=== PATIENT | male | born 1995 | race Caucasian/White ===

== ENCOUNTER 2017-10-27 16:52 | Emergency (ER) | payer MEDICAID, OTHER ==
[~2017-10-27] VITALS: Ht 175.3 cm; Wt 54.9 kg
[~2017-10-27 16:52] MED LIST: NO HOME MEDS
[2017-10-27 17:03] VITALS: BP 138/84
[2017-10-27] MEDS ORDERED: LIDOcaine 1.5% w/epinephrine 1:200,000 5ml ampul IJ ONE (19:05)
[2017-10-27] MEDS ORDERED: SULF1TAB49 PO (19:42)
[2017-10-27] MEDS ORDERED: mupirocin 2% ointment 22GM TP STA (19:49)
[2017-10-27] MEDS ORDERED: sulfamethoxazole/trimethoprim DS (800/160mg) tablet PO ONE (19:50)
[2017-10-27] MEDS ORDERED: MUPI22OI30 TOP (19:50)
[2017-10-27] MEDS ORDERED: mupirocin 2% nasal ointment 1gm UD NS STA (19:59)
== END 2017-10-27 20:00 | disposition home or self-care (01) ==
LOC: ER 16:53
DX: L02.01 Cutaneous abscess of face (principal); F17.200 Nicotine dependence, unspecified, uncomplicated; F15.90 Other stimulant use, unspecified, uncomplicated; Z79.2 Long term (current) use of antibiotics; Z56.0 Unemployment, unspecified
CPT/HCPCS: 10060; 99283; J3490

== ENCOUNTER 2018-05-23 08:16 | Emergency (ER) | payer MEDICAID ==
[~2018-05-23] VITALS: Ht 172.7 cm; Wt 63.1 kg
[2018-05-23 08:25] VITALS: BP 133/86
[2018-05-23 10:56] LABS: BASOPHILS % (AUTO) 0.4 % (0-1); EOSINOPHILS # (AUTO) 0.1 X10'3 (0-0.9); HEMATOCRIT 47.5 % (42.0-52.0); HEMOGLOBIN 16.5 g/dl (14.0-17.9); LYMPHOCYTES # (AUTO) 1.7 X10'3 (1.1-4.8); LYMPHOCYTES % (AUTO) 20.2 % (21-51); MEAN CORPUSCULAR HEMOGLOBIN 30.5 PG (27.0-31.0); MEAN CORPUSCULAR HGB CONC 34.7 g/dL (33.0-36.5); MEAN CORPUSCULAR VOLUME 87.9 FL (78-98); MEAN PLATELET VOLUME 8.3 FL (7.4-10.4); MONOCYTES # (AUTO) 0.9 X10'3 (0-0.9); MONOCYTES % (AUTO) 10.8 % (2-12); NEUTROPHILS # (AUTO) 5.8 X10'3 (1.8-7.7); NEUTROPHILS % (AUTO) 67.6 % (42-75); PLATELET COUNT 235 X10'3 (140-440); WHITE BLOOD COUNT 8.6 X10'3 (4.5-11.0)
[2018-05-23 11:10] LABS: ALANINE AMINOTRANSFERASE 38 U/L (12-78); ALBUMIN/GLOBULIN RATIO 1.2 (1.1-1.5); ALKALINE PHOSPHATASE 105 IU/L (46-116); ANION GAP 6 (8-16); ASPARTATE AMINO TRANSFERASE 22 U/L (10-37); BILIRUBIN,TOTAL 0.4 MG/DL (0.1-1.0); BLOOD UREA NITROGEN 16 MG/DL (7-18); BUN/CREATININE RATIO 16.7 (5.4-32.0); CALCIUM 9.2 MG/DL (8.5-10.1); CHLORIDE 103 MMOL/L (99-107); CREATININE 0.96 MG/DL (0.60-1.10); GLUCOSE 84 MG/DL (70-104); POTASSIUM 4.2 MMOL/L (3.5-5.1); SODIUM 138 MMOL/L (135-145); TOTAL CARBON DIOXIDE 28.8 MMOL/L (24-32); TOTAL PROTEIN 7.4 G/DL (6.4-8.2); eGFR > 90 ML/MIN
[2018-05-23 12:39] LABS: CLARITY,URINE CLOUDY (Clear); COLOR,URINE BROWN (Yellow); UA COLLECTION TYPE NON-SPECIFIED
[2018-05-23 12:42] LABS: RBC,URINE TNTC /HPF (0-2); SQUAMOUS EPITHELIAL CELL,UR NONE SEEN /LPF (FEW)
[2018-05-23 12:44] LABS: BACTERIA,URINE FEW /HPF (Neg)
[2018-05-23] MEDS ORDERED: azithromycin 250mg tablet PO ONE (12:50)
[2018-05-23] MEDS ORDERED: CefTRIAXone 250MG IM Kit w/LIDOcaine IM ONE (12:50)
[2018-05-23] MEDS ORDERED: CEPH250T PO (12:53)
[2018-05-23] MEDS ORDERED: FLO0.4C PO (12:53)
== END 2018-05-23 13:23 | disposition home or self-care (01) ==
LOC: ER 08:16
DX: R31.9 Hematuria, unspecified (principal); F12.90 Cannabis use, unspecified, uncomplicated; F15.90 Other stimulant use, unspecified, uncomplicated; F17.210 Nicotine dependence, cigarettes, uncomplicated; Z56.0 Unemployment, unspecified; Z79.2 Long term (current) use of antibiotics; Z79.899 Other long term (current) drug therapy
CPT/HCPCS: 36415; 80053; 81001; 85025; 87088; 87491; 87591; 96372; 99283; J0696

== ENCOUNTER 2018-09-15 21:55 | Emergency (ER) | payer MEDICAID, OTHER ==
[~2018-09-15] VITALS: Ht 175.3 cm; Wt 59.7 kg
[~2018-09-15 21:55] MED LIST changes: +CEPH250T PO
[2018-09-15] MEDS ORDERED: pantoprazole 40 MG vial IV ONE (22:10)
[2018-09-15] MEDS ORDERED: famotidine/PF 10 mg/ml inj IV ONE (22:10)
[2018-09-15] MEDS ORDERED: ondansetron/PF 4mg/2ml inj IV ONE (22:10)
[2018-09-15] MEDS ORDERED: normal saline 1000ML IV soln IVB ONE (22:10)
[2018-09-15] MEDS ORDERED: ESOMEPRAZOLE 40 MG VIAL IV ONE (22:25)
[2018-09-15] MEDS ORDERED: mag hydrox/Alum hydrox/simeth 30ml oral suspension PO ONE (22:25)
[2018-09-15] MEDS ORDERED: LIDOcaine Viscous 15ml cup MM PRN (22:25)
[2018-09-15 22:28] LABS: BASOPHILS # (AUTO) 0.1 X10'3 (0-0.2); EOSINOPHILS # (AUTO) 0.1 X10'3 (0-0.9); EOSINOPHILS % (AUTO) 1.3 % (0-6); HEMATOCRIT 41.4 % (42.0-52.0); HEMOGLOBIN 14.5 g/dl (14.0-17.9); LYMPHOCYTES # (AUTO) 1.4 X10'3 (1.1-4.8); LYMPHOCYTES % (AUTO) 16.8 % (21-51); MEAN CORPUSCULAR HEMOGLOBIN 30.1 PG (27.0-31.0); MEAN CORPUSCULAR VOLUME 86.1 FL (78-98); MEAN PLATELET VOLUME 7.7 FL (7.4-10.4); MONOCYTES # (AUTO) 1.3 X10'3 (0-0.9); MONOCYTES % (AUTO) 15.1 % (2-12); NEUTROPHILS # (AUTO) 5.7 X10'3 (1.8-7.7); NEUTROPHILS % (AUTO) 65.8 % (42-75); PLATELET COUNT 252 X10'3 (140-440); RED BLOOD COUNT 4.81 X10'6 (4.70-6.10); RED CELL DISTRIBUTION WIDTH 12.7 % (11.5-14.5); WHITE BLOOD COUNT 8.6 X10'3 (4.5-11.0)
[2018-09-15] MEDS: sucralfate 1gm/10ml UD suspension PO SCH ×2 (22:33→22:36)
[2018-09-15 22:37] LABS: ALANINE AMINOTRANSFERASE 80 U/L (12-78); ALBUMIN 3.7 G/DL (3.4-5.0); ALBUMIN/GLOBULIN RATIO 0.9 (1.1-1.5); ALKALINE PHOSPHATASE 278 IU/L (46-116); ANION GAP 11 (8-16); ASPARTATE AMINO TRANSFERASE 31 U/L (10-37); BLOOD UREA NITROGEN 13 MG/DL (7-18); BUN/CREATININE RATIO 13.3 (5.4-32.0); CALCIUM 8.9 MG/DL (8.5-10.1); CHLORIDE 100 MMOL/L (99-107); CREATININE 0.98 MG/DL (0.60-1.10); GLUCOSE 100 MG/DL (70-104); MAGNESIUM 1.8 MG/DL (1.5-2.4); POTASSIUM 3.4 MMOL/L (3.5-5.1); SODIUM 136 MMOL/L (135-145); TOTAL CARBON DIOXIDE 25.4 MMOL/L (24-32); eGFR > 90 ML/MIN
[2018-09-15 22:39] LABS: ETHANOL < 0.010 GM/DL (0.0-0.010)
--- NOTE | 2018-09-15 22:52 | NUR ---
SPOKE WITH JACKIE WITH POISON CONTROL, PER PC, RECOMMENDATIONS FOLLOWS: -PROVIDE PT WITH MILK, MAALOX, MYLANTA, OR A SIMILAR PRODUCT TO STABILIZE THE GASOLINE -NO ABNORMAL LABS TO BE EXPECTED D/T BODY NOT ABSORBING THE GASOLINE. -ABDOMINAL PAIN AND DISCOMFORT ARE EXPECTED S/SX. -PT TO BE SEEN BY PROVIDER AND D/C WHEN MD FEELS SAFE FOR DC.
[2018-09-15 23:44] LABS: TOTAL CELLS COUNTED 100
[2018-09-15 23:45] LABS: PLATELET ESTIMATE NORMAL
[2018-09-15 23:47] LABS: URINE AMPHETAMINE SCREEN POSITIVE (Neg); URINE BARBITUATE SCREEN NEGATIVE (Neg); URINE BENZODIAZEPINES SCREEN NEGATIVE (Neg); URINE CANNABINOID SCREEN POSITIVE (Neg); URINE COCAINE SCREEN NEGATIVE (Neg); URINE METHADONE SCREEN NEGATIVE (Neg); URINE OPIATE SCREEN NEGATIVE (Neg); URINE PHENCYCLIDINE SCREEN NEGATIVE (Neg)
[2018-09-16] MEDS ORDERED: OMEP20CA11 PO (00:08)
[2018-09-16] MEDS ORDERED: FAMO20TA44 PO (00:08)
[2018-09-16] MEDS ORDERED: LIDOcaine Viscous 15ml cup MM PRN (00:10)
[2018-09-16] MEDS ORDERED: mag hydrox/Alum hydrox/simeth 30ml oral suspension PO ONE (00:10)
[2018-09-16] MEDS ORDERED: sucralfate 1gm/10ml UD suspension PO SCH (00:10)
[2018-09-16 00:49] VITALS: BP 113/57
== END 2018-09-16 00:40 | disposition home or self-care (01) ==
LOC: ER 21:55
DX: T59.91XA Toxic effect of unspecified gases, fumes and vapors, accidental (unintentional), initial encounter (principal); R10.13 Epigastric pain; R11.10 Vomiting, unspecified; F15.90 Other stimulant use, unspecified, uncomplicated; F12.90 Cannabis use, unspecified, uncomplicated; Z56.0 Unemployment, unspecified; Z79.2 Long term (current) use of antibiotics; Z79.899 Other long term (current) drug therapy; Y92.89 Other specified places as the place of occurrence of the external cause
CPT/HCPCS: 36415; 71045; 80053; 80305; 80320; 83735; 84484; 85025; 93005; 96361; 96374; 96375; 99284; J2405; J3490; J7030

== ENCOUNTER 2018-09-17 21:43 | Emergency (ER) | payer MEDICAID, OTHER ==
[~2018-09-17] VITALS: Ht 177.8 cm; Wt 70.0 kg
[~2018-09-17 21:43] MED LIST changes: +FAMO20TA44 PO; +OMEP20CA11 PO
[2018-09-17 22:18] LABS: RED CELL DISTRIBUTION WIDTH 12.9 % (11.5-14.5)
[2018-09-17 22:19] LABS: BASOPHILS # (AUTO) 0.1 X10'3 (0-0.2); BASOPHILS % (AUTO) 1.1 % (0-1); EOSINOPHILS # (AUTO) 0.1 X10'3 (0-0.9); EOSINOPHILS % (AUTO) 1.7 % (0-6); HEMATOCRIT 42.3 % (42.0-52.0); HEMOGLOBIN 14.7 g/dl (14.0-17.9); LYMPHOCYTES # (AUTO) 1.1 X10'3 (1.1-4.8); LYMPHOCYTES % (AUTO) 14.4 % (21-51); MEAN CORPUSCULAR HEMOGLOBIN 30.2 PG (27.0-31.0); MEAN CORPUSCULAR HGB CONC 34.7 g/dL (33.0-36.5); MEAN PLATELET VOLUME 7.9 FL (7.4-10.4); MONOCYTES # (AUTO) 1.1 X10'3 (0-0.9); MONOCYTES % (AUTO) 13.8 % (2-12); NEUTROPHILS # (AUTO) 5.5 X10'3 (1.8-7.7); PLATELET COUNT 244 X10'3 (140-440); RED BLOOD COUNT 4.86 X10'6 (4.70-6.10); WHITE BLOOD COUNT 7.9 X10'3 (4.5-11.0)
[2018-09-17 22:30] LABS: PARTIAL THROMBOPLASTIN TIME 34 SECONDS (22-32)
[2018-09-17 22:31] LABS: ALANINE AMINOTRANSFERASE 81 U/L (12-78); ALBUMIN 3.7 G/DL (3.4-5.0); ALBUMIN/GLOBULIN RATIO 0.9 (1.1-1.5); ALKALINE PHOSPHATASE 305 IU/L (46-116); ANION GAP 10 (8-16); ASPARTATE AMINO TRANSFERASE 75 U/L (10-37); BILIRUBIN,TOTAL 0.8 MG/DL (0.1-1.0); BLOOD UREA NITROGEN 18 MG/DL (7-18); BUN/CREATININE RATIO 16.7 (5.4-32.0); CALCIUM 8.7 MG/DL (8.5-10.1); CHLORIDE 102 MMOL/L (99-107); CREATININE 1.08 MG/DL (0.60-1.10); GLUCOSE 89 MG/DL (70-104); POTASSIUM 3.3 MMOL/L (3.5-5.1); SODIUM 137 MMOL/L (135-145); TOTAL CARBON DIOXIDE 24.6 MMOL/L (24-32); eGFR 83 ML/MIN
[2018-09-17 23:27] VITALS: BP 136/76
[2018-09-17 23:28] LABS: LIPASE < 50 U/L (73-393)
--- NOTE | 2018-09-17 23:40 | NUR ---
pt unable/unwilling to provide urine or cooperate when straight catheter procedure explained. Juan Pablo and Raj, RNs assisted. Pt attempted to punch Raj and this RN. He settled down with redirection effort. Urine obtained.
[2018-09-18 00:01] LABS: ETHANOL < 0.010 GM/DL (0.0-0.010)
[2018-09-18 00:15] LABS: URINE AMPHETAMINE SCREEN POSITIVE (Neg); URINE BARBITUATE SCREEN NEGATIVE (Neg); URINE BENZODIAZEPINES SCREEN NEGATIVE (Neg); URINE CANNABINOID SCREEN POSITIVE (Neg); URINE COCAINE SCREEN NEGATIVE (Neg); URINE METHADONE SCREEN NEGATIVE (Neg); URINE OPIATE SCREEN POSITIVE (Neg); URINE PHENCYCLIDINE SCREEN NEGATIVE (Neg)
[2018-09-18] MEDS ORDERED: potassium Cl 20 mEq SR tablet PO STA (00:27)
== END 2018-09-18 00:46 | disposition home or self-care (01) ==
LOC: ER 21:44
DX: R07.89 Other chest pain (principal); F15.90 Other stimulant use, unspecified, uncomplicated; F12.90 Cannabis use, unspecified, uncomplicated; Z56.0 Unemployment, unspecified; Z98.890 Other specified postprocedural states; Z79.2 Long term (current) use of antibiotics
CPT/HCPCS: 36415; 71045; 80053; 80305; 80320; 83690; 84443; 84484; 85025; 85610; 85730; 93005; 99284